=== PATIENT | male | born 1945 | race Caucasian/White ===

== ENCOUNTER → 2018-06-27 09:56 | Outpatient (CLI) | payer MEDICARE, OTHER ==
--- NOTE | 2018-07-01 10:07 | EC ---
PATIENT:GIANFRANCO JIMÉNEZ DATE OF SERVICE: 06/27/18 SEX: M MEDICAL RECORD: [id number] DATE OF : 45 LOCATION:[facility] [place] AGE OF PATIENT: 73 ADMISSION DATE: 06/27/18 REFERRING PHYSICIAN: INTERPRETING PHYSICIAN: ROJELIO DONALDSON MD ECHOCARDIOGRAM REPORT ECHO CHARGES 4 ECHO COMPLETE Date: 06/27/18 CLINICAL DIAGNOSIS: MITRAL VALVE PROLAPSE ECHOCARDIOGRAPHIC MEASUREMENTS (adult normal given) AC root (d.<3.7cm) 3.7 cm LV Septum d (<1.2 cm> 1.7 cm Valve Excursion 1.5 cm LV Septum (systole) 2.0 cm Left Atria (s.<4.0cm> 4.4 cm LVPW d(<1.2cm) 1.9 cm RV (d.<2.3cm) 4.5 cm LVPW (sytole) 2.1 cm LV diastole(<5.6CM) 5.3 cm MV E-F(>70mm/sec) cm LV systole 3.4 cm LVOT Diameter 2.2 cm MV exc.(>10mm) 1.8 cm Est.ejection fraction (50-75%) % DOPPLER: LVIT cm/sec A 74.0 cm/sec E 52.0 cm/sec LA cm/sec RVSP 21 mmHg LVOT 87 cm/sec AOP1/2T m/s Asc. Ao 129 cm/sec RVOT 73 cm/sec RA cm/sec PA 147 cm/sec AV Gradient Peak 6.45 mmHg AV Mean 3.5 mmHg AV Area 2.4 cm MV Gradient Peak 4.01 mmHg MV Mean 0.95 mmHg MV Area cm COMMENTS: Paving Block Cutter: 2 MICKY FAITH Executive Meeting Manager: 3 Dr. Canales TAPE# PACS Pericardial Effusion N DATE OF SERVICE: Adequate 2-D echo, color-flow and spectral Doppler, and M-mode. Mild LVH. LV internal dimension is normal. Wall motion is normal. EF is greater than or equal to 55%. Aortic valve is tricuspid. No evidence of stenosis by Doppler interrogation. Left atrium dilated at 4.4 cm. Mitral valve shows mild prolapse only; however, only trace MR. Right-sided chamber is normal. Trace TR. ECHOCARDIOGRAM REPORT [id number] GIANFRANCO JIMÉNEZ TRANSINT:[id number] Voice Confirmation ID: [id number] DOCUMENT ID: [id number] ROJELIO DONALDSON MD at 1007 CC: [id number] DICTATION DATE: 06/28/181825 STRATEGIC MARKETING ASSOCIATE: 06/29/18 0151 DEP CLI 06/27/18 [place] [id number] [place] [id number]
== END | disposition home or self-care (01) ==
LOC: D.HCCARDIO 09:56
PROVIDERS: ATTEND Internal Medicine Interventional Cardiology
DX: I34.1 Nonrheumatic mitral (valve) prolapse (principal)

== ENCOUNTER → 2019-06-30 11:18 | Outpatient (CLI) | payer MEDICARE, OTHER ==
--- NOTE | ~2019-06-30 | EC ---
PATIENT:GIANFRANCO JMIÉNEZ DATE OF SERVICE: 06/30/19 SEX: M MEDICAL RECORD: [id number] DATE OF : [birth year] LOCATION:[facility] AGE OF PATIENT: 74 ADMISSION DATE: 06/30/19 REFERRING PHYSICIAN: INTERPRETING PHYSICIAN: ROJELIO DONALDSON MD ECHOCARDIOGRAM REPORT ECHO CHARGES 4 ECHO COMPLETE Date: 06/30/19 CLINICAL DIAGNOSIS: MITRAL VALVE PROLAPSE ECHOCARDIOGRAPHIC MEASUREMENTS (adult normal given) AC root (d.<3.7cm) 3.2 cm LV Septum d (<1.2 cm> 1.8 cm Valve Excursion 1.8 cm LV Septum (systole) 2.0 cm Left Atria (s.<4.0cm> 4.7 cm LVPW d(<1.2cm) 1.8 cm RV (d.<2.3cm) 4.3 cm LVPW (sytole) 2.0 cm LV diastole(<5.6CM) 4.2 cm MV E-F(>70mm/sec) cm LV systole 2.9 cm LVOT Diameter 2.1 cm MV exc.(>10mm) cm Est.ejection fraction (50-75%) % DOPPLER: LVIT cm/sec A 56.0 cm/sec E 37.0 cm/sec LA cm/sec RVSP 28 mmHg LVOT 68 cm/sec AOP1/2T m/s Asc. Ao 107 cm/sec RVOT 63 cm/sec RA cm/sec PA 128 cm/sec AV Gradient Peak 4.54 mmHg AV Mean 2.31 mmHg AV Area 2.5 cm MV Gradient Peak 2.59 mmHg MV Mean 0.91 mmHg MV Area cm COMMENTS: Fire Extinguisher Charger: 2 MICKY FAITH Friction Paint Machine Tender: 3 Dr. Canales TAPE# PACS Pericardial Effusion N DATE OF SERVICE: Adequate 2D, color flow imaging, spectral Doppler, and M-Mode. LVH is present. LV internal dimension is normal. Wall motion is normal. EF is greater than or equal to 55%. Aortic valve is tricuspid. No evidence of stenosis by Doppler interrogation. Left atrium is dilated at 4.7 cm. Mitral valve shows no prolapse. Trace MR. Right-sided chambers are grossly normal. Trace TR. ECHOCARDIOGRAM REPORT [id number] GIANFRANCO JIMÉNEZ TRANSINT:[id number] Voice Confirmation ID: [id number] DOCUMENT ID: [id number] ROJELIO DONALDSON MD CC: [id number] DICTATION DATE: 07/01/19 1316 MAINFRAME ANALYST: 07/01/191923 DEP CLI 06/30/19 [place] [id number] [place] [id number]
== END | disposition home or self-care (01) ==
LOC: D.HCCECHO 11:18
PROVIDERS: ATTEND Internal Medicine Interventional Cardiology
DX: I34.1 Nonrheumatic mitral (valve) prolapse (principal)

== ENCOUNTER → 2020-07-14 09:21 | Outpatient (CLI) | payer MEDICARE, OTHER ==
--- NOTE | ~2020-07-14 | EC ---
PATIENT:GIANFRANCO JIMÉNEZ DATE OF SERVICE: 07/14/20 SEX: M MEDICAL RECORD: [id number] DATE OF : [birth year] [facility]GE [facility] PAT[facility]: 75 ADMISSION DATE: 07/14/20 REFERRING PHYSICIAN: INTERPRETING PHYSICIAN: ROJELIO DONALDSON MD ECHOCARDIOGRAM REPORT ECHO CHARGES 4 ECHO COMPLETE Date: 07/14/20 CLINICAL DIAGNOSIS: CAD/ATRIAL FIB ASSESS EF AND VALVES ECHOCARDIOGRAPHIC MEASUREMENTS (adult normal given) AC root (d.<3.7cm) 3.4 cm LV Septum d (<1.2 cm> 1.7 cm Valve Excursion 1.7 cm LV Septum (systole) 2.2 cm Left Atria (s.<4.0cm> 4.0 cm LVPW d(<1.2cm) 1.6 cm RV (d.<2.3cm) 4.0 cm LVPW (sytole) 2.1 cm LV diastole(<5.6CM) 4.2 cm MV E-F(>70mm/sec) cm LV systole 2.6 cm LVOT Diameter 2.3 cm MV exc.(>10mm) 1.3 cm Est.ejection fraction (50-75%) % DOPPLER: LVIT cm/sec A 64.0 cm/sec E 50.0 cm/sec LA cm/sec RVSP 21 mmHg LVOT 95 cm/sec AOP1/2T m/s Asc. Ao 119 cm/sec RVOT 75 cm/sec RA cm/sec PA 158 cm/sec AV Gradient Peak 5.63 mmHg AV Mean 2.83 mmHg AV Area 3.1 cm MV Gradient Peak 3.96 mmHg MV Mean 1.06 mmHg MV Area cm COMMENTS: Diamond Mounter: 2 MICKY FAITH Design Printing Machine Setter: 3 Dr. Canales TAPE# PACS Pericardial Effusion N DATE OF SERVICE: Adequate 2D, color flow imaging, spectral Doppler, and M-mode. FINDINGS: LVH is present. LV internal dimensions normal. Wall motion normal. EF greater than or equal to 55%. Aortic valve is sclerotic. No evidence of stenosis by Doppler interrogation. Left atrium is normal at 4.0 cm. Mitral valve shows no prolapse. Trace MR. Right sided chambers are grossly normal. Trace TR. ECHOCARDIOGRAM REPORT [id number] GIANFRANCO JIMÉNEZ TRANSINT:[id number] Voice Confirmation ID: [id number] DOCUMENT ID: [id number] ROJELIO DONALDSON MD CC: [id number] DICTATION DATE: 07/14/20 1640 BUCKLE FRAME SHAPER: 07/15/20 0048 DEP CLI 07/14/20 [place] [id number]
== END | disposition home or self-care (01) ==
LOC: D.HCCECHO 09:21
PROVIDERS: ATTEND Internal Medicine Interventional Cardiology
DX: I25.10 Atherosclerotic heart disease of native coronary artery without angina pectoris (principal)